=== PATIENT | female | born 1950 | race African-American/Black ===

== ENCOUNTER 2016-10-23 07:28 | Outpatient (CLI) | payer OTHER ==
[2016-10-23 08:21] LABS: Hemoglobin A1c 8.5 % (4.0-6.0)
[2016-10-23 08:37] LABS: ALT (SGPT) 18 U/L (0-55); AST (SGOT) 14 U/L (5-34); Albumin 4.1 g/dL (3.4-4.8); Alkaline Phosphatase 49 U/L (40-150); Anion Gap 16 mmol/L (10-20); BUN (Urea Nitrogen) 9 mg/dL (9.8-20.1); Bilirubin, Total 0.4 mg/dL (0.2-1.2); Calc. Creatinine Clearance 0 mL/min (70-130); Calcium 9.3 mg/dL (7.8-10.44); Carbon Dioxide 26 mmol/L (23-31); Chloride 103 mmol/L (98-107); Estimated GFR-MDRD Greater than 90; Globulin 2.8 g/dL (2.4-3.5); Glucose 242 mg/dL (80-115); Potassium 3.9 mmol/L (3.5-5.1); Protein, Total 6.9 g/dL (5.8-8.1); Sodium 141 mmol/L (136-145)
== END 2016-10-23 07:29 ==
LOC: MADLABBHPM 07:28
PROVIDERS: ATTEND Family Medicine
DX: E78.2 Mixed hyperlipidemia (principal)
CPT/HCPCS: 36415; 80053; 83036

== ENCOUNTER 2017-01-12 08:06 | Outpatient (CLI) | payer OTHER ==
[2017-01-12 08:39] LABS: Hemoglobin A1c 8.8 % (4.0-6.0)
[2017-01-12 08:41] LABS: ALT (SGPT) 22 U/L (0-55); AST (SGOT) 16 U/L (5-34); Albumin 4.2 g/dL (3.4-4.8); Alkaline Phosphatase 58 U/L (40-150); Anion Gap 15 mmol/L (10-20); BUN (Urea Nitrogen) 10 mg/dL (9.8-20.1); Bilirubin, Total 0.4 mg/dL (0.2-1.2); Calc. Creatinine Clearance 0 mL/min (70-130); Calcium 9.5 mg/dL (7.8-10.44); Carbon Dioxide 23 mmol/L (23-31); Cardiac Risk 4.1 (Less than 4.5); Chloride 106 mmol/L (98-107); Cholesterol 178 mg/dL (< 200 Desired); Estimated GFR-MDRD Greater than 90; Globulin 2.7 g/dL (2.4-3.5); Glucose 244 mg/dL (80-115); HDL Cholesterol 43 mg/dL (>60 Neg Risk); LDL Cholesterol, Calculated 118 mg/dL; Potassium 3.9 mmol/L (3.5-5.1); Protein, Total 6.9 g/dL (5.8-8.1); Sodium 140 mmol/L (136-145); Triglycerides 83 mg/dL (Less than 150)
[2017-01-12 17:33] LABS: Creatinine, Urine 116.81 mg/dL (47-110); Microalbumin Urine 1.4 mg/dL (0.5-50.0)
== END 2017-01-12 08:07 ==
LOC: MADLABBHPM 08:06
PROVIDERS: ATTEND Family Medicine
DX: E78.2 Mixed hyperlipidemia (principal)
CPT/HCPCS: 36415; 80053; 80061; 82043; 83036; 84443

== ENCOUNTER 2017-01-18 15:32 | Outpatient (CLI) | payer OTHER ==
--- NOTE | 2017-01-18 17:52 | RAD ---
RIGHT SHOULDER THREE VIEW 01/18/17 HISTORY: Fall. COMPARISON: None. FINDINGS: Moderate osteoarthritic disease of the right acromioclavicular joint. No acute fracture or malalignm ent. The ribs are unremarkable. IMPRESSION: Moderate osteoarthritic disease of the acromioclavicular joint. POS: DANICA
== END 2017-01-18 15:33 | disposition home or self-care (01) ==
LOC: MADRAD 15:32
PROVIDERS: ATTEND Family Medicine
DX: M25.519 Pain in unspecified shoulder (principal); M19.011 Primary osteoarthritis, right shoulder

== ENCOUNTER 2017-09-23 08:11 | Emergency (ER) | payer MEDICARE, MEDICAID | END 2017-09-23 09:08 | disposition home or self-care (01) | LOC: MADERS 08:11 | DX: R05 Cough (principal); G43.909 Migraine, unspecified, not intractable, without status migrainosus; K21.9 Gastro-esophageal reflux disease without esophagitis; E78.5 Hyperlipidemia, unspecified; I10 Essential (primary) hypertension; F41.9 Anxiety disorder, unspecified; Z86.73 Personal history of transient ischemic attack (TIA), and cerebral infarction without residual deficits; Z79.82 Long term (current) use of aspirin; Z79.84 Long term (current) use of oral hypoglycemic drugs; Z79.899 Other long term (current) drug therapy | CPT/HCPCS: 99283 ==

== ENCOUNTER 2017-12-17 13:20 | Emergency (ER) | payer MEDICARE, MEDICAID ==
--- NOTE | 2017-12-17 14:19 | RAD ---
LEFT FOOT 3 VIEWS: HISTORY: Injury. Left foot pain. FINDINGS: Comparison is made with the exam of 02/25/16. Mild pes planus deformity is again seen. There are calcaneal spurs. Degenerative changes are again noted. There is stable hallux valgus deformity of the great toe. No fracture or dislocation or bony destruction is identified. POS: OFF
== END 2017-12-17 14:13 | disposition home or self-care (01) ==
LOC: MADERS 13:20
DX: S90.32XA Contusion of left foot, initial encounter (principal); E11.9 Type 2 diabetes mellitus without complications; K21.9 Gastro-esophageal reflux disease without esophagitis; I10 Essential (primary) hypertension; J45.909 Unspecified asthma, uncomplicated; G43.909 Migraine, unspecified, not intractable, without status migrainosus; E78.5 Hyperlipidemia, unspecified; F41.9 Anxiety disorder, unspecified; Z79.82 Long term (current) use of aspirin; Z79.899 Other long term (current) drug therapy; W20.8XXA Other cause of strike by thrown, projected or falling object, initial encounter

== ENCOUNTER 2018-04-28 09:30 | Emergency (ER) | payer MEDICARE, MEDICAID ==
[2018-04-28] MEDS ORDERED: Ibuprofen 800 MG TAB ONE (10:16)
[2018-04-28] MEDS ORDERED: Dexamethasone 4 MG TAB ONE (10:16)
== END 2018-04-28 10:33 | disposition home or self-care (01) ==
LOC: MADERS 09:30
DX: S86.812A Strain of other muscle(s) and tendon(s) at lower leg level, left leg, initial encounter (principal); K21.9 Gastro-esophageal reflux disease without esophagitis; J45.909 Unspecified asthma, uncomplicated; I10 Essential (primary) hypertension; F41.9 Anxiety disorder, unspecified; G43.909 Migraine, unspecified, not intractable, without status migrainosus; Z79.82 Long term (current) use of aspirin; Z86.73 Personal history of transient ischemic attack (TIA), and cerebral infarction without residual deficits; Z79.899 Other long term (current) drug therapy; X58.XXXA Exposure to other specified factors, initial encounter
CPT/HCPCS: 99283; J8540

== ENCOUNTER 2019-08-07 08:10 | Emergency (ER) | payer MEDICARE, MEDICAID ==
--- NOTE | 2019-08-07 09:03 | RAD ---
XR Wrist 3 Rt View STANDARD: 08/07/2019 8:43 AM CLINICAL INDICATION: Right wrist pain for 2 days with decreased range of motion COMPARISON: None. FINDINGS: Bones: No acute osseous abnormality. Joints: Joints space is preserved.. Soft Tissue: Normal.. IMPRESSION: No acute osseous abnormality..
[2019-08-07] MEDS ORDERED: Amlodipine 5 MG TAB ONE (09:21)
[2019-08-07] MEDS ORDERED: Ketorolac Tromethamine 10 MG TAB ONE (09:21)
== END 2019-08-07 09:48 | disposition home or self-care (01) ==
LOC: MADERS 08:10
DX: M10.9 Gout, unspecified (principal); I10 Essential (primary) hypertension; E11.9 Type 2 diabetes mellitus without complications; K21.9 Gastro-esophageal reflux disease without esophagitis; J45.909 Unspecified asthma, uncomplicated; G43.909 Migraine, unspecified, not intractable, without status migrainosus; Z86.73 Personal history of transient ischemic attack (TIA), and cerebral infarction without residual deficits; M19.90 Unspecified osteoarthritis, unspecified site; E78.5 Hyperlipidemia, unspecified; E78.00 Pure hypercholesterolemia, unspecified; F41.9 Anxiety disorder, unspecified
CPT/HCPCS: 96372; J1040

== ENCOUNTER 2019-10-17 10:19 | Emergency (ER) | payer MEDICARE, MEDICAID ==
[2019-10-17] MEDS ORDERED: Dexamethasone 4 MG TAB ONE (11:02)
== END 2019-10-17 11:24 | disposition home or self-care (01) ==
LOC: MADERS 10:19
DX: M75.91 Shoulder lesion, unspecified, right shoulder (principal); I10 Essential (primary) hypertension; K21.9 Gastro-esophageal reflux disease without esophagitis; J45.909 Unspecified asthma, uncomplicated; G43.909 Migraine, unspecified, not intractable, without status migrainosus; E11.9 Type 2 diabetes mellitus without complications; F41.9 Anxiety disorder, unspecified; E78.5 Hyperlipidemia, unspecified; E78.00 Pure hypercholesterolemia, unspecified; Z86.73 Personal history of transient ischemic attack (TIA), and cerebral infarction without residual deficits; Z79.899 Other long term (current) drug therapy; Z79.82 Long term (current) use of aspirin; Z79.51 Long term (current) use of inhaled steroids; Z79.84 Long term (current) use of oral hypoglycemic drugs
CPT/HCPCS: 99283; J8540

== ENCOUNTER 2020-01-25 18:44 | Emergency (ER) | payer MEDICARE, OTHER ==
[2020-01-25] MEDS ORDERED: Ibuprofen 800 MG TAB ONE (19:03)
[2020-01-25] MEDS ORDERED: HYDROcodone/Acetaminophen 5/325 mg Tablet ONE (19:03)
[2020-01-25] MEDS ORDERED: Acetaminophen 325 MG TAB ONE (19:03)
[2020-01-25] MEDS ORDERED: Cyclobenzaprine 10 MG TAB ONE (19:03)
== END 2020-01-25 19:12 | disposition home or self-care (01) ==
LOC: MADERS 18:44
DX: M62.830 Muscle spasm of back (principal); E11.9 Type 2 diabetes mellitus without complications; K21.9 Gastro-esophageal reflux disease without esophagitis; I10 Essential (primary) hypertension; G43.909 Migraine, unspecified, not intractable, without status migrainosus; J45.909 Unspecified asthma, uncomplicated; E78.5 Hyperlipidemia, unspecified; M19.90 Unspecified osteoarthritis, unspecified site; E78.00 Pure hypercholesterolemia, unspecified; F41.9 Anxiety disorder, unspecified; Z86.73 Personal history of transient ischemic attack (TIA), and cerebral infarction without residual deficits
CPT/HCPCS: 99283

== ENCOUNTER 2020-04-04 07:38 | Emergency (ER) | payer MEDICARE, OTHER ==
[2020-04-04] MEDS ORDERED: predniSONE 20 MG TAB ONE (08:26)
== END 2020-04-04 08:25 | disposition home or self-care (01) ==
LOC: MADERS 07:38
DX: M25.511 Pain in right shoulder (principal); I10 Essential (primary) hypertension; E11.9 Type 2 diabetes mellitus without complications; K21.9 Gastro-esophageal reflux disease without esophagitis; G43.909 Migraine, unspecified, not intractable, without status migrainosus; F41.9 Anxiety disorder, unspecified; Z79.899 Other long term (current) drug therapy
CPT/HCPCS: 99283; J7512

== ENCOUNTER 2020-05-11 17:35 | Emergency (ER) | payer MEDICARE, OTHER ==
[2020-05-11] MEDS ORDERED: Dexamethasone 4 MG TAB ONE (18:07)
[2020-05-11] MEDS ORDERED: HYDROcodone/Acetaminophen 5/325 mg Tablet ONE (18:07)
[2020-05-11] MEDS ORDERED: Ibuprofen 800 MG TAB ONE (18:07)
== END 2020-05-11 18:15 | disposition home or self-care (01) ==
LOC: MADERS 17:35
DX: M25.511 Pain in right shoulder (principal); R21 Rash and other nonspecific skin eruption; E11.9 Type 2 diabetes mellitus without complications; K21.9 Gastro-esophageal reflux disease without esophagitis; I10 Essential (primary) hypertension; J45.909 Unspecified asthma, uncomplicated; G43.909 Migraine, unspecified, not intractable, without status migrainosus; E78.5 Hyperlipidemia, unspecified; E78.00 Pure hypercholesterolemia, unspecified; M19.90 Unspecified osteoarthritis, unspecified site; F41.9 Anxiety disorder, unspecified; Z86.73 Personal history of transient ischemic attack (TIA), and cerebral infarction without residual deficits; Z79.82 Long term (current) use of aspirin; Z79.84 Long term (current) use of oral hypoglycemic drugs; Z79.899 Other long term (current) drug therapy
CPT/HCPCS: 99283; J8540

== ENCOUNTER 2020-09-26 09:13 | Emergency (ER) | payer MEDICARE, MEDICAID ==
[~2020-09-26 09:13] MED LIST: Sodium Chloride 0.9% 100 ML BAG ONE
[2020-09-26] MEDS ORDERED: Morphine 2 MG/ML VIAL ONE (09:55)
[2020-09-26] MEDS ORDERED: Ondansetron PF 4 MG/2 ML Vial ONE (09:55)
[2020-09-26] MEDS ORDERED: Iopamidol 370 76% 125 ML VIAL FS ONE (10:26)
[2020-09-26 10:32] LABS: #Basophils 0.1 thou/uL (0.0-0.2); #Lymphocytes 2.1 thou/uL (1.20-3.40); #Monocytes 0.4 thou/uL (0.11-0.59); #Neutrophils 9.9 thou/uL (1.40-6.50); %Basophils 0.7 % (0.0-1.0); %Lymphocytes 17.1 % (21.0-51.0); %Monocytes 2.9 % (0.0-10.0); %Neutrophils 79.3 % (42.0-75.0); Hemoglobin 13.7 g/dL (12.0-16.0); Mean Corpuscular HGB CONC 33.3 g/dL (32.0-36.0); Mean Corpuscular Hemoglobin 28.4 pg (27.0-31.0); Mean Corpuscular Volume 85.4 fL (78.0-98.0); Mean Platelet Volume 7.5 fL (7.4-10.4); Platelet Count 292 thou/uL (130-400); RBC Distribution Width 12.5 % (11.5-14.5); White Blood Cell (WBC) Count 12.4 thou/uL (4.8-10.8)
[2020-09-26 10:51] LABS: ALT (SGPT) 238 U/L (8-55); AST (SGOT) 301 U/L (5-34); Albumin 4.4 g/dL (3.4-4.8); Alkaline Phosphatase 217 U/L (40-110); Anion Gap 19 mmol/L (10-20); BUN (Urea Nitrogen) 8 mg/dL (9.8-20.1); Bilirubin, Total 1.9 mg/dL (0.2-1.2); Calc. Creatinine Clearance 0 mL/min (70-130); Calcium 9.5 mg/dL (7.8-10.44); Carbon Dioxide 24 mmol/L (23-31); Chloride 102 mmol/L (98-107); Globulin 3.4 g/dL (2.4-3.5); Glucose 247 mg/dL (80-115); Lipase 20 U/L (8-78); Potassium 3.8 mmol/L (3.5-5.1); Protein, Total 7.8 g/dL (6.0-8.3); Sodium 141 mmol/L (136-145)
--- NOTE | 2020-09-26 10:56 | RAD ---
2 VIEW CHEST: Date: 09/26/2020 HISTORY: Reason for exam given is TADS/CMI. COMPARISON: 09/06/2015. FINDINGS: The lung matias are clear. No evidence of infiltrate or vascular congestion. Heart and mediastinum un remarkable. Osseous structures unremarkable. IMPRESSION: No acute abnormality. POS: AGW
[2020-09-26 11:17] LABS: Bilirubin Small (Negative); Blood, Urine Negative (Negative); Glucose, Urine (Dipstick) 100 mg/dL (Negative); Ketone, Urine Trace mg/dL (Negative); Leukocyte Negative (Negative); Nitrite Negative (Negative); Protein, Urine (Dipstick) 30 mg/dL (Neg-Trace); Specific Gravity, Urine 1.025 (1.005-1.030); Urobilinogen > or = 8.0 mg/dL (Less than 2); pH, Urine 6.5 (5.0-9.0)
[2020-09-26 11:18] LABS: Clarity Hazy (Clear)
--- NOTE | 2020-09-26 11:21 | CT ---
CT ABDOMEN AND PELVIS WITHOUT IV CONTRAST: Date: 09/26/2020 INDICATION: Right upper quadrant pain. No comparison studies. FINDINGS: There is a large focal area of abnormal attenuation in the right lobe of the liver measuring 7-8 cm. This is indeterminate on this noncontrast study. The spleen and pancreas appear unremarkable. Gallbladder appears contracted. Stomach and duodenum unr emarkable. Adrenal glands unremarkable. Kidneys unremarkable. No hydronephrosis or calculus. Small bowel loops appear normal. Appendix not identified. Colon unremarkable. Aorta normal caliber. Numerous clips seen in the inferior retroperitoneal region and in the abdomen. Clips along the cecum suggest prior appendectomy. Images through the pelvis show numerous surgical clips. There is evidence of hysterectomy. Urinary bladder unremarkable. No free fluid, mass, or adenopathy identified. The osseous structures are unremarkable. IMPRESSION: Evidence of a large mass involving the right lobe of the liver. Neoplasm is the primary consideration . Further evaluation with CT or MRI with contrast following hepatic protocol is recommended. POS: SENA
[2020-09-26 11:32] LABS: Bacteria/HPF Rare-Few HPF (None Seen); RBC/HPF 0-3 HPF (0-3); Squamous Epithelial 0-3 HPF (0-3); WBC/HPF 0-3 HPF (0-3)
--- NOTE | 2020-09-26 12:12 | CT ---
CTA CHEST WITH CONTRAST: Date: 09/26/2020 Axial tomograms obtained following angio protocol with multiplanar reconstruction and 3D postprocessi ng. INDICATION: Chest pain. PE risk. FINDINGS: Pulmonary arteries show adequate enhancement. Peripheral pulmonary arteries are degraded due to artif act from soft tissue attenuation and possibly from motion. No evidence of pulmonary embolus identified, although peripheral emboli cannot be excluded. Thoracic aorta unremarkable. There is cardiomegaly and mild vascular engorgement. There is no signifi cant mediastinal or hilar adenopathy. Review of the lung matias show no confluent consolidation, infiltrate, or effusion. Images through upper abdomen show some heterogeneity in the liver which is incompletely evaluated in the mid right lobe. This was noted on the CT abdomen without contrast as a hepatic mass lesion. IMPRESSION: 1. There is cardiomegaly and mild vascular congestion. 2. No evidence of pulmonary embolus. 3. No focal infiltrate. 4. The mass in the right lobe of the liver seen on noncontrast CT is partially imaged on this exam a nd shows some heterogeneous enhancement as visualized. This will need further complete evaluation wit h CT or MRI as previously recommended. POS: AGW
== END 2020-09-26 12:22 | disposition home or self-care (01) ==
LOC: MADERS 09:13
DX: R10.11 Right upper quadrant pain (principal); R74.8 Abnormal levels of other serum enzymes; R16.0 Hepatomegaly, not elsewhere classified; E11.9 Type 2 diabetes mellitus without complications; K21.9 Gastro-esophageal reflux disease without esophagitis; I10 Essential (primary) hypertension; J45.909 Unspecified asthma, uncomplicated; G43.909 Migraine, unspecified, not intractable, without status migrainosus; M19.90 Unspecified osteoarthritis, unspecified site; E78.5 Hyperlipidemia, unspecified; E78.00 Pure hypercholesterolemia, unspecified; Z79.84 Long term (current) use of oral hypoglycemic drugs; Z86.73 Personal history of transient ischemic attack (TIA), and cerebral infarction without residual deficits; Z79.82 Long term (current) use of aspirin; Z79.899 Other long term (current) drug therapy
CPT/HCPCS: 71046; 71275; 74176; 80053; 83690; 84484; 85025; 85379; 93005; J2270; 36415; 81003; 81015; J2405; J3490; Q9967

== ENCOUNTER 2020-10-31 21:16 | Emergency (ER) | payer MEDICARE, OTHER ==
[2020-10-31] MEDS ORDERED: HYDROcodone/Acetaminophen 10/325 mg Tablet ONE (21:38)
[2020-10-31 21:59] LABS: #Basophils 0.1 thou/uL (0.0-0.2); #Lymphocytes 1.3 thou/uL (1.20-3.40); #Monocytes 0.7 thou/uL (0.11-0.59); #Neutrophils 9.9 thou/uL (1.40-6.50); %Basophils 0.6 % (0.0-1.0); %Eosinophils 0.3 % (0.0-10.0); %Lymphocytes 10.8 % (21.0-51.0); %Neutrophils 82.3 % (42.0-75.0); Hemoglobin 13.4 g/dL (12.0-16.0); Mean Corpuscular Hemoglobin 27.5 pg (27.0-31.0); Mean Corpuscular Volume 85.9 fL (78.0-98.0); Mean Platelet Volume 7.2 fL (7.4-10.4); Platelet Count 279 thou/uL (130-400); RBC Distribution Width 12.6 % (11.5-14.5); Red Blood Cell (RBC) Count 4.87 mill/uL (4.20-5.40)
[2020-10-31 22:20] LABS: ALT (SGPT) 46 U/L (8-55); AST (SGOT) 74 U/L (5-34); Albumin 4.1 g/dL (3.4-4.8); Alkaline Phosphatase 204 U/L (40-110); Anion Gap 18 mmol/L (10-20); BUN (Urea Nitrogen) 11 mg/dL (9.8-20.1); Bilirubin, Total 1.4 mg/dL (0.2-1.2); Calc. Creatinine Clearance 0 mL/min (70-130); Calcium 9.4 mg/dL (7.8-10.44); Carbon Dioxide 29 mmol/L (23-31); Chloride 96 mmol/L (98-107); Globulin 3.3 g/dL (2.4-3.5); Glucose 231 mg/dL (80-115); Lipase 30 U/L (8-78); Potassium 3.6 mmol/L (3.5-5.1); Protein, Total 7.4 g/dL (5.8-8.1); Sodium 139 mmol/L (136-145)
[2020-10-31] MEDS ORDERED: Ondansetron PF 4 MG/2 ML Vial ONE (23:04)
[2020-10-31] MEDS ORDERED: Ketorolac Tromethamine 30 MG/ML VIAL ONE (23:04)
== END 2020-10-31 23:52 | disposition home or self-care (01) ==
LOC: MADERS 21:16
DX: R10.11 Right upper quadrant pain (principal); E11.9 Type 2 diabetes mellitus without complications; K21.9 Gastro-esophageal reflux disease without esophagitis; I10 Essential (primary) hypertension; G43.909 Migraine, unspecified, not intractable, without status migrainosus; E78.5 Hyperlipidemia, unspecified; Z79.899 Other long term (current) drug therapy
CPT/HCPCS: 36415; 80053; 82150; 83690; 85025; 96374; 96375; J1885; J2405

== ENCOUNTER 2021-04-11 08:35 | Emergency (ER) | payer MEDICARE, MEDICAID ==
[2021-04-11] MEDS ORDERED: Sodium Chloride 0.9% 100 ML BAG ONE (08:47)
[2021-04-11] MEDS ORDERED: Sodium Chloride 0.9% 1,000 ML BAG ONE (08:47)
[2021-04-11 10:01] LABS: Band 21 % (5-11); Hemoglobin 9.4 g/dL (12.0-16.0); Hypochromia SLIGHT = 6-15 cells (100X) (0-5/hpf); Lymphocytes 10 % (21-51); MDiff Complete? YES; Mean Corpuscular HGB CONC 34.5 g/dL (32.0-36.0); Mean Corpuscular Volume 92.9 fL (78.0-98.0); Mean Platelet Volume 8.9 fL (7.4-10.4); Monocytes 1 % (0-10); Neutrophil 68 % (42-75); Platelet Count 149 thou/uL (130-400); Platelet Morphology Comment Appears Adequate; RBC Distribution Width 17.8 % (11.5-14.5); Red Blood Cell (RBC) Count 2.93 mill/uL (4.20-5.40); White Blood Cell (WBC) Count 20.5 thou/uL (4.8-10.8)
[2021-04-11 10:02] LABS: ALT (SGPT) 17 U/L (8-55); AST (SGOT) 18 U/L (5-34); Alkaline Phosphatase 140 U/L (40-110); Anion Gap 17 mmol/L (10-20); BUN (Urea Nitrogen) 34 mg/dL (9.8-20.1); Bilirubin, Total 0.7 mg/dL (0.2-1.2); Calc. Creatinine Clearance 0 mL/min (70-130); Calcium 9.2 mg/dL (7.8-10.44); Carbon Dioxide 28 mmol/L (23-31); Chloride 96 mmol/L (98-107); Globulin 3.2 g/dL (2.4-3.5); Glucose 163 mg/dL (80-115); Potassium 3.4 mmol/L (3.5-5.1); Protein, Total 7.2 g/dL (5.8-8.1); Sodium 138 mmol/L (136-145)
[2021-04-11 11:24] LABS: Bilirubin Negative (Negative); Blood, Urine Negative (Negative); Clarity Clear (Clear); Glucose, Urine (Dipstick) Negative (Negative); Ketone, Urine Negative (Negative); Leukocyte Negative (Negative); Nitrite Negative (Negative); Protein, Urine (Dipstick) Trace mg/dL (Neg-Trace); Specific Gravity, Urine 1.015 (1.005-1.030); pH, Urine 5.5 (5.0-9.0)
[2021-04-11] MEDS ORDERED: Piperacillin/Tazobactam 4.5 GM VIAL ONE (11:27)
[2021-04-11] MEDS ORDERED: Sodium Chloride 0.9% 100 ML ONE (11:27)
[2021-04-11] MEDS ORDERED: Iopamidol 370 76% 100 ML VIAL ONE (12:00)
[2021-04-12] MEDS ORDERED: Piperacillin/Tazobactam 4.5 GM VIAL ONE (00:38)
[2021-04-12 06:39] LABS: #Basophils 0.1 thou/uL (0.0-0.2); #Lymphocytes 1.9 thou/uL (1.20-3.40); #Monocytes 0.7 thou/uL (0.11-0.59); #Neutrophils 13.8 thou/uL (1.40-6.50); %Basophils 0.4 % (0.0-1.0); %Eosinophils 0.3 % (0.0-10.0); %Lymphocytes 11.7 % (21.0-51.0); %Monocytes 4.4 % (0.0-10.0); %Neutrophils 83.2 % (42.0-75.0); Hemoglobin 7.8 g/dL (12.0-16.0); Mean Corpuscular HGB CONC 32.4 g/dL (32.0-36.0); Mean Corpuscular Hemoglobin 30.7 pg (27.0-31.0); Mean Corpuscular Volume 94.8 fL (78.0-98.0); Mean Platelet Volume 8.2 fL (7.4-10.4); Platelet Count 102 thou/uL (130-400); RBC Distribution Width 18.6 % (11.5-14.5); Red Blood Cell (RBC) Count 2.56 mill/uL (4.20-5.40); White Blood Cell (WBC) Count 16.6 thou/uL (4.8-10.8)
[2021-04-12 06:42] LABS: ALT (SGPT) 14 U/L (8-55); AST (SGOT) 14 U/L (5-34); Albumin 3.4 g/dL (3.4-4.8); Alkaline Phosphatase 117 U/L (40-110); Anion Gap 15 mmol/L (10-20); BUN (Urea Nitrogen) 26 mg/dL (9.8-20.1); Bilirubin, Total 0.6 mg/dL (0.2-1.2); CRP (Inflammatory) 2.69 mg/dL (= or < 0.5); Calc. Creatinine Clearance 0 mL/min (70-130); Calcium 8.5 mg/dL (7.8-10.44); Carbon Dioxide 26 mmol/L (23-31); Chloride 103 mmol/L (98-107); Globulin 2.7 g/dL (2.4-3.5); Glucose 86 mg/dL (80-115); Potassium 3.1 mmol/L (3.5-5.1); Protein, Total 6.1 g/dL (5.8-8.1); Sodium 141 mmol/L (136-145)
[2021-04-12 06:54] LABS: Anisocytosis SLIGHT = 6-15 cells (100X) (0-5/hpf); Platelet Morphology Comment Appears Adequate; Poikilocytosis SLIGHT = 6-15 cells (100X) (0-5/hpf)
[2021-04-12] MEDS ORDERED: HYDROcodone/Acetaminophen 10/325 mg Tablet ONE (07:14)
[2021-04-12] MEDS ORDERED: Piperacillin/Tazobactam 3.375 GM VIAL ONE (10:24)
[2021-04-12] MEDS ORDERED: Sodium Chloride 0.9% 100 ML ONE (10:24)
[2021-04-12] MEDS ORDERED: Sodium Chloride 0.9% 250 ML 250 ML ONE (13:32)
[2021-04-12 13:45] LABS: #Basophils 0.1 thou/uL (0.0-0.2); #Lymphocytes 2.9 thou/uL (1.20-3.40); #Monocytes 0.9 thou/uL (0.11-0.59); #Neutrophils 12.2 thou/uL (1.40-6.50); %Basophils 0.7 % (0.0-1.0); %Eosinophils 0.3 % (0.0-10.0); %Lymphocytes 18.1 % (21.0-51.0); %Monocytes 5.4 % (0.0-10.0); %Neutrophils 75.6 % (42.0-75.0); Mean Corpuscular HGB CONC 34.1 g/dL (32.0-36.0); Mean Corpuscular Hemoglobin 31.9 pg (27.0-31.0); Mean Corpuscular Volume 93.5 fL (78.0-98.0); Mean Platelet Volume 7.5 fL (7.4-10.4); Platelet Count 92 thou/uL (130-400); RBC Distribution Width 18.3 % (11.5-14.5); Red Blood Cell (RBC) Count 2.51 mill/uL (4.20-5.40); White Blood Cell (WBC) Count 16.2 thou/uL (4.8-10.8)
== END 2021-04-12 14:48 | disposition short-term general hospital (02) ==
LOC: MADERS 08:35
DX: K62.89 Other specified diseases of anus and rectum (principal); K52.9 Noninfective gastroenteritis and colitis, unspecified; D64.9 Anemia, unspecified; D72.829 Elevated white blood cell count, unspecified; C22.8 Malignant neoplasm of liver, primary, unspecified as to type; E11.9 Type 2 diabetes mellitus without complications; K21.9 Gastro-esophageal reflux disease without esophagitis; I10 Essential (primary) hypertension; G43.909 Migraine, unspecified, not intractable, without status migrainosus; M19.90 Unspecified osteoarthritis, unspecified site; Z79.82 Long term (current) use of aspirin; Z79.899 Other long term (current) drug therapy; Z79.01 Long term (current) use of anticoagulants; Z79.84 Long term (current) use of oral hypoglycemic drugs
CPT/HCPCS: 36415; 51701; 74022; 74177; 80053; 81003; 82150; 83605; 85025; 86140; 86850; 86900; 86901; 87040; 87086; 96365; 96366; 96367; J2543; J3370; J3490; J7050; Q9967